=== PATIENT | male | born 1960 | race Caucasian/White ===

== ENCOUNTER 2019-08-25 09:51 | Inpatient (IN) | payer MEDICAID, OTHER ==
[~2019-08-25] VITALS: Ht 162.6 cm; Wt 72.1 kg
[2019-08-25] MEDS ORDERED: METFORMIN HCL 500MG TABLET PO ONE (10:45)
[2019-08-25] MEDS ORDERED: SODIUM CHLORIDE 0.9% 1,000 ML IV ONE (10:45)
[2019-08-25 10:54] LABS: CHLORIDE 99 mEq/L (98-107)
[2019-08-25 10:57] LABS: ETHANOL BLOOD 12 mg/dL
[2019-08-25] MEDS ORDERED: CLONIDINE 0.2MG TABLET PO ONE (14:45)
[2019-08-25] MEDS ORDERED: ASPIRIN 325MG EC TABLET PO ONE (14:45)
[2019-08-25] MEDS ORDERED: CLONIDINE 0.1MG TABLET PO PRN (22:15)
[2019-08-25] MEDS ORDERED: DIPHENHYDRAMINE 50MG/ML VIAL IV PRN (22:15)
[2019-08-25] MEDS ORDERED: DEXTROSE 50% WATER 50ML SYRINGE IV PRN (22:15)
[2019-08-25] MEDS ORDERED: ONDANSETRON HCL 4MG/2ML INJ IV PRN (22:15)
[2019-08-25 22:20] VITALS: BP 141/93
[2019-08-25] MEDS ORDERED: CHLORDIAZEPOXIDE 25MG CAPSULE PO PRN (22:29)
[2019-08-25 23:10] VITALS: BP 141/93
[2019-08-26] VITALS: BP 142/83
[2019-08-26] MEDS ORDERED: MVI, ADULT NO.1 10 ML, FOLIC ACID 1 MG, THIAMINE HCL 100 MG in SODIUM CHLORIDE 0.9% 1,0... IV SCH ×4
[2019-08-26] MEDS ORDERED: OMEP20CA14 MT (00:30)
[2019-08-26] MEDS ORDERED: DIPH25TA62 PO (00:30)
[2019-08-26] MEDS ORDERED: GEMF600T5 MT (00:30)
[2019-08-26] MEDS: INSULIN GLARGINE UD 100 UNITS/ML SYR SUBCUT SCH ×2 (01:19→21:15)
[2019-08-26] MEDS: SODIUM CHLORIDE 0.9% 1,000 ML IV SCH ×2 (02:02→15:33)
[2019-08-26 04:00] VITALS: BP 154/93
[2019-08-26] MEDS: BLOOD SUGAR DIAGNOSTIC STRIP TEST SCH ×4 (06:07→20:44)
[2019-08-26 07:24] LABS: BASOPHILS % 0.2 % (0.0-2.0); EOSINOPHILS % 2.8 % (0.0-5.0); HEMATOCRIT. 43.2 % (42.0-52.0); HEMOGLOBIN. 14.8 g/dL (14.0-18.0); LYMPHOCYTES % 26.8 % (20.0-50.0); MEAN CORPUSCULAR HEMOGLOBIN 32.9 pg (28.0-32.0); MEAN CORPUSCULAR VOLUME 96.1 fL (80.0-94.0); MEAN PLATELET VOLUME 8.2 fl (7.4-10.4); MONOCYTES % 6.7 % (2.0-8.0); NEUTROPHILS % 63.5 % (40.0-76.0); PLATELET 197 x1000/uL (130-400); RED CELL DISTRIBUTION WIDTH 12.6 % (11.6-14.6)
[2019-08-26 08:00] VITALS: BP 138/78
[2019-08-26] MEDS: INSULIN LISPRO 100 UNITS/ML SUBCUT SCH ×4 (08:04→21:00)
[2019-08-26] MEDS ORDERED: INFLUENZA VIRUS VACCINE(AFLURIA) 0.5ML SYR IM ONE (10:00)
[2019-08-26] MEDS ORDERED: PNEUMOCOCCAL 23-VAL P-SAC VAC 0.5 ML IM ONE (10:00)
[2019-08-26] MEDS: FAMOTIDINE 20MG TABLET PO SCH ×2 (10:05→20:49)
[2019-08-26] MEDS: ASPIRIN 81MG EC TABLET PO SCH (10:05)
[2019-08-26] MEDS: THIAMINE HCL 100MG TABLET PO SCH (10:05)
[2019-08-26] MEDS: ENOXAPARIN 40MG/0.4ML SYR SUBCUT SCH (10:06)
[2019-08-26 12:00] VITALS: BP 160/99
[2019-08-26] MEDS: ACETAMINOPHEN 325MG TABLET PO PRN (15:32)
[2019-08-26 16:00] VITALS: BP 149/92
[2019-08-26] MEDS: METFORMIN HCL 500MG TABLET PO SCH (17:59)
[2019-08-26 20:00] VITALS: BP 128/83
[2019-08-26] MEDS: ATORVASTATIN CALCIUM 20MG TABLET PO SCH (21:15)
[2019-08-27] VITALS: BP 132/73
[2019-08-27] MEDS: SODIUM CHLORIDE 0.9% 1,000 ML IV SCH (00:19)
[2019-08-27 04:00] VITALS: BP 156/89
[2019-08-27] MEDS: GLIMEPIRIDE 2MG TABLET PO SCH (06:14)
[2019-08-27] MEDS: BLOOD SUGAR DIAGNOSTIC STRIP TEST SCH ×4 (06:14→20:51)
[2019-08-27] MEDS: METFORMIN HCL 500MG TABLET PO SCH ×2 (06:15→17:18)
[2019-08-27] MEDS: INSULIN LISPRO 100 UNITS/ML SUBCUT SCH ×4 (06:29→20:57)
[2019-08-27 08:00] VITALS: BP 148/92
[2019-08-27] MEDS: ENOXAPARIN 40MG/0.4ML SYR SUBCUT SCH (09:05)
[2019-08-27] MEDS: FAMOTIDINE 20MG TABLET PO SCH ×2 (09:05→20:43)
[2019-08-27] MEDS: ASPIRIN 81MG EC TABLET PO SCH (09:05)
[2019-08-27] MEDS: THIAMINE HCL 100MG TABLET PO SCH (09:05)
[2019-08-27 12:00] VITALS: BP 148/95
[2019-08-27 16:00] VITALS: BP 150/91
[2019-08-27] MEDS: ACETAMINOPHEN 325MG TABLET PO PRN (19:34)
[2019-08-27 19:46] VITALS: BP 155/97
[2019-08-27] MEDS: ATORVASTATIN CALCIUM 20MG TABLET PO SCH (20:42)
[2019-08-27] MEDS: INSULIN GLARGINE UD 100 UNITS/ML SYR SUBCUT SCH (22:55)
[2019-08-28] VITALS: BP 137/89
[2019-08-28 04:00] VITALS: BP 125/83
[2019-08-28] MEDS: BLOOD SUGAR DIAGNOSTIC STRIP TEST SCH ×3 (06:30→16:45)
[2019-08-28] MEDS: INSULIN LISPRO 100 UNITS/ML SUBCUT SCH ×4 (06:31→17:15)
[2019-08-28] MEDS: GLIMEPIRIDE 2MG TABLET PO SCH (06:49)
[2019-08-28] MEDS: METFORMIN HCL 500MG TABLET PO SCH ×2 (06:49→17:15)
[2019-08-28 08:00] VITALS: BP 169/90
[2019-08-28] MEDS: FAMOTIDINE 20MG TABLET PO SCH (08:44)
[2019-08-28] MEDS: THIAMINE HCL 100MG TABLET PO SCH (08:44)
[2019-08-28] MEDS: ASPIRIN 81MG EC TABLET PO SCH (08:44)
[2019-08-28] MEDS: ACETAMINOPHEN 325MG TABLET PO PRN ×2 (08:44→12:50)
[2019-08-28] MEDS: ENOXAPARIN 40MG/0.4ML SYR SUBCUT SCH (08:45)
[2019-08-28 12:00] VITALS: BP 130/81
== END 2019-08-28 18:38 | disposition home or self-care (01) | DRG 45 ==
LOC: ER 09:51 → 5WST 17:07 → ENRESERV 20:55
PROVIDERS: ADMIT Internal Medicine; ATTEND Internal Medicine
DX: I63.81 Other cerebral infarction due to occlusion or stenosis of small artery (principal); E11.65 Type 2 diabetes mellitus with hyperglycemia; F10.10 Alcohol abuse, uncomplicated; Y90.0 Blood alcohol level of less than 20 mg/100 ml; I10 Essential (primary) hypertension; Z90.5 Acquired absence of kidney; Z91.14 Patient's other noncompliance with medication regimen; Z86.73 Personal history of transient ischemic attack (TIA), and cerebral infarction without residual deficits; Z71.41 Alcohol abuse counseling and surveillance of alcoholic; Z79.899 Other long term (current) drug therapy
CPT/HCPCS: 36415; 70551; 80048; 80061; 80320; 82962; 85025; 90471; 90686; 90732; 93880; 93970; 96365; 96372; 97110; 97116; 97162; 97166; 97530; 97535; 99285; J1200; J1650; J1815; J3411; J3490; J7030; G0480

== ENCOUNTER 2021-12-09 10:38 | Emergency (ER) | payer MEDICAID ==
[~2021-12-09] VITALS: Ht 170.2 cm; Wt 76.0 kg
[~2021-12-09 10:38] MED LIST: DIPH25TA62 PO; GEMF600T90 MT; OMEP20CA14 MT
[2021-12-09] MEDS ORDERED: SODIUM CHLORIDE 0.9% 1,000 ML IV ONE (11:00)
[2021-12-09 11:37] LABS: BASOPHILS % 0.6 % (0.0-2.0); EOSINOPHILS % 2.7 % (0.0-5.0); HEMATOCRIT. 37.7 % (42.0-52.0); HEMOGLOBIN. 13.3 g/dL (14.0-18.0); LYMPHOCYTES % 31.7 % (20.0-50.0); MEAN CORPUSCULAR HEMOGLOBIN 33.9 pg (28.0-32.0); MEAN CORPUSCULAR VOLUME 95.9 fL (80.0-94.0); MEAN PLATELET VOLUME 7.3 fl (7.4-10.4); MONOCYTES % 10.2 % (2.0-8.0); NEUTROPHILS % 54.8 % (40.0-76.0); PLATELET 151 x1000/uL (130-400); RED BLOOD CELL COUNT 3.93 mill/uL (4.7-6.1); RED CELL DISTRIBUTION WIDTH 13.6 % (11.6-14.6)
[2021-12-09 11:46] LABS: CHLORIDE 99 mEq/L (98-107)
[2021-12-09 11:47] LABS: CLARITY URINE CLEAR (CLEAR); COLOR URINE YELLOW (YELLOW); KETONES URINE NEGATIVE (NEGATIVE); LEUKOCYTE ESTERASE URINE NEGATIVE (NEGATIVE); NITRITE URINE NEGATIVE (NEGATIVE); OCCULT BLOOD URINE NEGATIVE (NEGATIVE); PROTEIN URINE NEGATIVE (NEGATIVE); SPECIFIC GRAVITY URINE 1.005 (1.005-1.030); UROBILINOGEN URINE 0.2 E.U./dL (0.2-1.0)
[2021-12-09 12:02] LABS: *AMPHETAMINES SCREEN URINE NEGATIVE (NEGATIVE); *BARBITURATES SCREEN URINE NEGATIVE (NEGATIVE); *BENZODIAZEPINES SCREEN URINE NEGATIVE (NEGATIVE); *COCAINE SCREEN URINE NEGATIVE (NEGATIVE); CANNABINOID URINE SCREEN NEGATIVE (NEGATIVE); METHADONE URINE SCREEN NEGATIVE (NEGATIVE); OPIATES URINE SCREEN NEGATIVE (NEGATIVE); PHENCYCLIDINE URINE SCREEN NEGATIVE (NEGATIVE)
[2021-12-09 12:08] LABS: ETHANOL BLOOD 300 mg/dL
[2021-12-09 16:02] VITALS: BP 137/74
== END 2021-12-09 16:04 | disposition home or self-care (01) ==
LOC: ER 10:47
DX: F10.229 Alcohol dependence with intoxication, unspecified (principal); Y90.8 Blood alcohol level of 240 mg/100 ml or more; E11.65 Type 2 diabetes mellitus with hyperglycemia; I10 Essential (primary) hypertension; K70.10 Alcoholic hepatitis without ascites; Z79.84 Long term (current) use of oral hypoglycemic drugs; Z79.4 Long term (current) use of insulin
CPT/HCPCS: 36415; 70450; 71045; 80053; 80305; 80307; 80320; 80329; 81003; 85025; 96360; 99285; J7030; G0480

== ENCOUNTER 2021-12-26 19:28 | Emergency (ER) | payer MEDICAID ==
[~2021-12-26] VITALS: Ht 167.6 cm; Wt 73.0 kg
[2021-12-26 19:37] VITALS: BP 152/80
[2021-12-26] MEDS ORDERED: SODIUM CHLORIDE 0.9% 1,000 ML IV ONE (20:15)
[2021-12-26 21:11] LABS: CLARITY URINE CLEAR (CLEAR); COLOR URINE YELLOW (YELLOW); KETONES URINE NEGATIVE (NEGATIVE); LEUKOCYTE ESTERASE URINE NEGATIVE (NEGATIVE); NITRITE URINE NEGATIVE (NEGATIVE); OCCULT BLOOD URINE NEGATIVE (NEGATIVE); PH URINE 5.5 (4.5-8.0); PROTEIN URINE NEGATIVE (NEGATIVE); SPECIFIC GRAVITY URINE 1.007 (1.005-1.030); UROBILINOGEN URINE 0.2 E.U./dL (0.2-1.0)
[2021-12-26 21:18] LABS: BASOPHILS % 0.7 % (0.0-2.0); EOSINOPHILS % 2.2 % (0.0-5.0); HEMATOCRIT. 38.9 % (42.0-52.0); HEMOGLOBIN. 13.3 g/dL (14.0-18.0); LYMPHOCYTES % 25.5 % (20.0-50.0); MEAN CORPUSCULAR HEMOGLOBIN 33.5 pg (28.0-32.0); MEAN CORPUSCULAR VOLUME 98.2 fL (80.0-94.0); MEAN PLATELET VOLUME 7.2 fl (7.4-10.4); MONOCYTES % 8.7 % (2.0-8.0); NEUTROPHILS % 62.9 % (40.0-76.0); PLATELET 238 x1000/uL (130-400); RED BLOOD CELL COUNT 3.96 mill/uL (4.7-6.1); RED CELL DISTRIBUTION WIDTH 13.5 % (11.6-14.6)
[2021-12-26 21:19] LABS: CHLORIDE 98 mEq/L (98-107)
[2021-12-26 21:27] LABS: *AMPHETAMINES SCREEN URINE NEGATIVE (NEGATIVE); *BARBITURATES SCREEN URINE NEGATIVE (NEGATIVE); *BENZODIAZEPINES SCREEN URINE NEGATIVE (NEGATIVE); *COCAINE SCREEN URINE NEGATIVE (NEGATIVE); CANNABINOID URINE SCREEN NEGATIVE (NEGATIVE); METHADONE URINE SCREEN NEGATIVE (NEGATIVE); OPIATES URINE SCREEN NEGATIVE (NEGATIVE); PHENCYCLIDINE URINE SCREEN NEGATIVE (NEGATIVE)
[2021-12-26 21:28] LABS: ETHANOL BLOOD 283 mg/dL
== END 2021-12-27 01:59 | disposition home or self-care (01) ==
LOC: ER 19:28
DX: F10.229 Alcohol dependence with intoxication, unspecified (principal); Y90.8 Blood alcohol level of 240 mg/100 ml or more; E11.65 Type 2 diabetes mellitus with hyperglycemia; I10 Essential (primary) hypertension; E78.5 Hyperlipidemia, unspecified
CPT/HCPCS: 36415; 80053; 80305; 80307; 80320; 80329; 81003; 85025; 96360; 99283; J7030; G0480

== ENCOUNTER 2022-01-14 19:00 | Emergency (ER) | payer MEDICAID ==
[~2022-01-14] VITALS: Ht 170.2 cm; Wt 77.0 kg
[2022-01-14] MEDS ORDERED: SODIUM CHLORIDE 0.9% 1,000 ML IV ONE (19:30)
[2022-01-14 20:11] LABS: BASOPHILS % 0.3 % (0.0-2.0); EOSINOPHILS % 2.7 % (0.0-5.0); HEMATOCRIT. 40.9 % (42.0-52.0); HEMOGLOBIN. 14.2 g/dL (14.0-18.0); LYMPHOCYTES % 35.7 % (20.0-50.0); MEAN PLATELET VOLUME 7.4 fl (7.4-10.4); MONOCYTES % 10.3 % (2.0-8.0); PLATELET 173 x1000/uL (130-400); RED BLOOD CELL COUNT 4.18 mill/uL (4.7-6.1); RED CELL DISTRIBUTION WIDTH 13.5 % (11.6-14.6)
[2022-01-14 20:36] LABS: *AMPHETAMINES SCREEN URINE NEGATIVE (NEGATIVE); *BARBITURATES SCREEN URINE NEGATIVE (NEGATIVE); *BENZODIAZEPINES SCREEN URINE NEGATIVE (NEGATIVE); *COCAINE SCREEN URINE NEGATIVE (NEGATIVE); CANNABINOID URINE SCREEN NEGATIVE (NEGATIVE); METHADONE URINE SCREEN NEGATIVE (NEGATIVE); OPIATES URINE SCREEN NEGATIVE (NEGATIVE); PHENCYCLIDINE URINE SCREEN NEGATIVE (NEGATIVE)
[2022-01-14 20:55] LABS: ETHANOL BLOOD 267 mg/dL
[2022-01-14 20:58] LABS: CHLORIDE 96 mEq/L (98-107)
[2022-01-14] MEDS ORDERED: IBUPROFEN 400MG TABLET PO ONE (21:15)
[2022-01-14 22:50] VITALS: BP 147/69
== END 2022-01-14 22:51 | disposition home or self-care (01) ==
LOC: ER 19:00
DX: F10.229 Alcohol dependence with intoxication, unspecified (principal); E11.9 Type 2 diabetes mellitus without complications; I10 Essential (primary) hypertension; R42 Dizziness and giddiness
CPT/HCPCS: 36415; 71045; 80053; 80305; 80320; 85025; 93005; 96360; 99285; J7030; G0480

== ENCOUNTER 2022-03-29 15:46 | Emergency (ER) | payer MEDICAID ==
[~2022-03-29] VITALS: Ht 165.1 cm; Wt 86.0 kg
[2022-03-29 15:50] VITALS: BP 118/70
== END 2022-03-29 17:36 | disposition home or self-care (01) ==
LOC: ER 15:46
DX: F10.131 Alcohol abuse with withdrawal delirium (principal); Y90.9 Presence of alcohol in blood, level not specified
CPT/HCPCS: 99283

== ENCOUNTER 2022-05-27 10:13 | Emergency (ER) | payer MEDICAID ==
[~2022-05-27] VITALS: Ht 167.6 cm; Wt 91.0 kg
[2022-05-27] MEDS ORDERED: SODIUM CHLORIDE 0.9% 1,000 ML IV ONE (11:30)
[2022-05-27] MEDS ORDERED: ACETAMINOPHEN 325MG TABLET PO ONE (11:30)
[2022-05-27 11:45] LABS: BASOPHILS % 0.3 % (0.0-2.0); EOSINOPHILS % 3.2 % (0.0-5.0); HEMATOCRIT. 42.8 % (42.0-52.0); HEMOGLOBIN. 15.2 g/dL (14.0-18.0); MEAN CORPUSCULAR HEMOGLOBIN 34.5 pg (28.0-32.0); MEAN CORPUSCULAR VOLUME 97.3 fL (80.0-94.0); MEAN PLATELET VOLUME 7.4 fl (7.4-10.4); MONOCYTES % 7.8 % (2.0-8.0); NEUTROPHILS % 60.7 % (40.0-76.0); PLATELET 189 x1000/uL (130-400); RED CELL DISTRIBUTION WIDTH 12.9 % (11.6-14.6)
[2022-05-27 11:53] LABS: CHLORIDE 97 mEq/L (98-107)
[2022-05-27 11:58] LABS: PROTHROMBIN TIME 10.5 sec (9.6-11.0)
[2022-05-27 12:05] LABS: ETHANOL BLOOD 97 mg/dL
[2022-05-27] MEDS ORDERED: KETOROLAC 15MG/ML VIAL IV ONE (14:15)
[2022-05-27 15:16] VITALS: BP 169/101
== END 2022-05-27 15:50 | disposition home or self-care (01) ==
LOC: ER 10:23
DX: F10.10 Alcohol abuse, uncomplicated (principal); Y90.4 Blood alcohol level of 80-99 mg/100 ml; R53.1 Weakness; R42 Dizziness and giddiness; E11.9 Type 2 diabetes mellitus without complications; I10 Essential (primary) hypertension
CPT/HCPCS: 36415; 71045; 72170; 80053; 80320; 84484; 85025; 85610; 96361; 96374; 99284; J1885; J7030; G0480